=== PATIENT | female | born 1970 | race Caucasian/White ===

== ENCOUNTER 2016-05-15 08:24 | Emergency (ER) | payer BC ==
[2016-05-15] MEDS ORDERED: Ketorolac 60 MG/2 ML SDV IM ONE (09:29)
[2016-05-15 20:34] VITALS: BP 116/76
--- NOTE | 2016-05-16 04:19 | ER ---
DATE SEEN: 05/15/2016 D-dimer 168 (100-400), troponin less than 0.01, white count 6100, PMN 71, lymphs 23, monos 5, platelets 301,000, hemoglobin 13.4. Complete metabolic panel normal and C-reactive protein elevated at 2.1. /[id number] KENISHA/MODL
--- NOTE | 2016-05-16 12:06 | CR ---
INDICATION: Pneumonia, pleuritis, chest pain. CHEST: PA and lateral views of the chest were obtained 05/15/2016. No comparisons were available. The heart appeared normal in size and shape. Mediastinum and bony thorax were unremarkable. Slightly prominent AP diameter is noted. However, no definite active infiltrate or effusion could be identified. IMPRESSION: No acute process. MTDD
--- NOTE | 2016-05-16 13:33 | ER ---
DATE SEEN: 05/15/2016 TIME SEEN: The patient was seen at 0835 hours. CHIEF COMPLAINT: Status post treatment of pneumonia with Amoxil. She did not get fluoroquinolone-Cipro or Zithromax because she is allergic to both medicines, consequently was placed on Amoxil. She has finished 10 days of Amoxil, but now she is having chest wall pain. Woke at 0300 hours with shoulder discomfort and severe pain with inspiratory effort. She denies fever or chills. She has been coughing frequently and has chest wall discomfort with coughing. Most of the discomfort in the left anterior chest. She had just finished 875 mg amoxicillin b.i.d. for 10 days. PAST MEDICAL HISTORY: No diabetes, heart disease, high blood pressure, asthma, or other serious illness. SOCIAL HISTORY: Nonsmoker. She is 4, para 4-0-0-4 with 2 C-sections. Also hysterectomy and LUKE with 1 year later BSO. REVIEW OF SYSTEMS: Otherwise negative except as noted above. PHYSICAL EXAMINATION: VITAL SIGNS: See nurse's note. CONSTITUTIONAL: Alert woman in moderate distress with moderate left chest wall discomfort. HEENT: PERRLA, intact. Pharynx without abnormality. No thyromegaly. No cervical adenopathy. No thrush noted. LUNGS: Clear to auscultation without rales, rhonchi, or wheezes. HEART: S1, S2. No murmur. No irregular rate and rhythm. CHEST: Pressure on the left chest wall, ribs 3, 4, and 5 and sternocostochondral joints are tender. No suggestion of shingles or herpes zoster. ABDOMEN: Soft. No hepatosplenomegaly, guarding, or abdominal discomfort. EXTREMITIES: Without edema. No rash noted. ASSESSMENT: 1. Possible atypical Mycoplasma pneumoniae which does not respond to Amoxil, but would respond to doxycycline and azithromycin or fluoroquinolones. She is allergic to fluoroquinolones and azithromycin, consequently she will be prescribed doxycycline to treat a potential inflammatory process not treated by the Amoxil antibiotic. 2. She has pleuritis. Treated with Indocin 50 mg b.i.d. to t.i.d. 3. She has backup of Vicodin for pain if it does not relent with Indocin. 4. Follow up with doctor in a week or earlier if worse. ADDITIONAL COMMENT: There was no pleural rub noted. DIAGNOSES: 1. Resolving pneumonia, probably atypical Mycoplasma pneumoniae. 2. Pleuritis with associated chest wall pain. 3. Ribs 3, 4, and 5 costochondritis and sternal chondritis. /[id number] KENISHA/MAR
== END 2016-05-15 10:52 | disposition home or self-care (01) ==
LOC: FB.ED 08:24
DX: J18.9 Pneumonia, unspecified organism (principal); M94.0 Chondrocostal junction syndrome [Tietze]; R09.1 Pleurisy
CPT/HCPCS: 36415; 71020; 80053; 84484; 85025; 85379; 86140; 96372; 99284; J1885